=== PATIENT | female | born 1985 | race African-American/Black ===

== ENCOUNTER 2017-09-08 03:18 | Inpatient (IN) | payer BC ==
[2017-09-08] MEDS: Lactated Ringers 1,000 ML IV SCH ×4 (06:03→15:43)
[2017-09-08] MEDS ORDERED: Sodium Chloride 0.9% 10 ML Syringe FLUSH PRN (08:34)
[2017-09-08] MEDS ORDERED: Sodium Chloride 0.9% 2.5 ML Syringe FLUSH PRN (08:34)
[2017-09-08] MEDS ORDERED: Lactated Ringers 1,000 ML IV SCH ×2 (08:45→17:30)
[2017-09-08] MEDS ORDERED: Oxytocin/0.9 % Sodium Chloride 30 UNIT/500 ML BAG IV SCH (08:45)
[2017-09-08] MEDS ORDERED: Citric Acid/Sodium Citrate Solution 30 ML Cup PO SCH (08:45)
--- NOTE | 2017-09-08 11:10 | PCM.PREANE ---
Preanesthetic Assessment - Procedure Proposed Procedure: , repeat; kuldip - Anesthesia/Transfusion/Family Hx Anesthesia History: Unknown Family History of Anesthesia Reaction: No Intubation History: Unknown - Review of Systems General: Other (mild contractions) Pulmonary: No Symptoms Cardiovascular: No Symptoms Gastrointestinal: Other (some GERD) Neurological: No Symptoms Other: Reports: None - Physical Assessment NPO Status Date: 09/07/17 NPO Status Time: 23:00 Height: 5 ft 1 in Weight: 156 lb ASA Class: 2E Mental Status: Alert & Oriented x3 Airway Class: Mallampati = 1 Dentition: Reports: Normal Dentition Thyro-Mental Finger Breadths: 3 Mouth Opening Finger Breadths: 3 ROM/Head Extension: Full Lungs: Clear to Auscultation, Normal Respiratory Effort Cardiovascular: Regular Rate, Regular Rhythm, No Murmurs - Lab Values: Laboratory Last Values WBC 5.45 K/uL (4.0-11.0) 09/08/17 08:52 RBC 3.93 M/uL (4.30-5.90) L 09/08/17 08:52 Hgb 11.9 g/dL (12.0-16.0) L 09/08/17 08:52 Hct 35.5 % (36.0-46.0) L 09/08/17 08:52 MCV 90.3 fL (80.0-98.0) 09/08/17 08:52 MCH 30.3 pg (27.0-32.0) 09/08/17 08:52 MCHC 33.5 g/dL (31.0-37.0) 09/08/17 08:52 RDW Std Deviation 45.2 fl (28.0-62.0) 09/08/17 08:52 RDW Coeff of Tony 14 % (11.0-15.0) 09/08/17 08:52 Plt Count 166 K/uL (150-400) 09/08/17 08:52 MPV 11.00 fL (7.40-12.00) 09/08/17 08:52 Nucleated RBC % 0.0 /100WBC 09/08/17 08:52 Nucleated RBCs # 0 K/uL 09/08/17 08:52 Blood Type A POSITIVE 09/08/17 08:52 Antibody Screen NEGATIVE 09/08/17 08:52 - Allergies Allergies/Adverse Reactions: Allergies Allergy/AdvReac Type Severity Reaction Status Date / Time No Known Allergies Allergy Verified 05/05/14 13:15 - Blood Blood Available: No Product(s) Available: PRBC (T and S) - Anesthesia Plan Pre-Op Medication Ordered: Antacids - Acknowledgements Anesthesia Type Planned: Spinal Pt an Appropriate Candidate for the Planned Anesthesia: Yes Alternatives and Risks of Anesthesia Discussed w Pt/Guardian: Yes Pt/Guardian Understands and Agrees with Anesthesia Plan: Yes PreAnesthesia Questionnaire - Past Health History Medical/Surgical History: Denies Medical/Surgical History - CURRENT (IN HOUSE) MEDS Current Meds: Current Medications Citric Acid/Sodium Citrate (Bicitra Solution) 30 ml PO .ONCE RAIZA Lactated Ringer's (Ringers, Lactated) 1,000 mls @ 999 mls/hr IV ASDIRECTED [facility] Last Admin: 09/08/17 07:55 Dose: 999 mls/hr Lactated Ringer's (Ringers, Lactated) 1,000 mls @ 250 mls/hr IV ASDIRECTED [facility] Oxytocin/Sodium Chloride (Oxytocin 30 Unit/500 Ml-Ns) 30 unit in 500 mls @ 250 mls/hr IV TITRATE RAIZA Lactated Ringer's (Ringers, Lactated) 1,000 mls @ 500 mls/hr IV .BOLUS [facility] Sodium Chloride (Saline Flush) 10 ml FLUSH ASDIRECTED PRN PRN Reason: Keep Vein Open Sodium Chloride (Saline Flush) 2.5 ml FLUSH ASDIRECTED PRN PRN Reason: Keep Vein Open
[2017-09-08] MEDS ORDERED: ceFAZolin 2 GM in Premix Bag 1 BAG IV ONE (11:14)
--- NOTE | 2017-09-08 12:08 | PCM.LDHP ---
L&D History of Present Illness - General Date of Service: 09/08/17 Admit Problem/Dx: Patient Status Order with Admit Dx/Problem 09/08/17 04:00 Patient Status [ADT] Routine 09/08/17 08:37 Patient Status [ADT] Routine Admission Diagnosis/Problem Admission Diagnosis/Problem Source of Information: Patient History Limitations: Reports: No Limitations - History of Present Illness Improves with: Reports: None Worsens with: Reports: None Associated Symptoms: Reports: N - Related Data Allergies/Adverse Reactions: Allergies Allergy/AdvReac Type Severity Reaction Status Date / Time No Known Allergies Allergy Verified 05/05/14 13:15 Past Medical History - Past Health History Medical/Surgical History: Denies Medical/Surgical History H&P Review of Systems - Review of Systems: Review Of Systems: See Below General: Reports: No Symptoms HEENT: Reports: No Symptoms Pulmonary: Reports: No Symptoms Cardiovascular: Reports: No Symptoms Gastrointestinal: Reports: No Symptoms Genitourinary: Reports: No Symptoms Musculoskeletal: Reports: No Symptoms Skin: Reports: No Symptoms Psychiatric: Reports: No Symptoms Neurological: Reports: No Symptoms Hematologic/Lymphatic: Reports: No Symptoms Immunologic: Reports: No Symptoms L&D Exam - Exam Exam: See Below - Vital Signs Weight: 70.76 kg - OB Specific Fundal Height In cm: 37 Contraction Intensity: Moderate Movement: Active Heart Tones: Present Presentation: Vertex - Comer Score Comer Score Cervix Position: Posterior Comer Score Consistency: Firm Comer Score Effacement: 31-50% Comer Score Dilation: 1-2 cm Comer Score Infant's Station: -2 Comer Score Total: 3 - Exam General: Alert, Oriented HEENT: PERRLA, Conjunctiva Clear, EACs Clear, EOMI, Hearing Intact, Mucosa Moist & Gaffney, Nares Patent, Normal Nasal Septum, Posterior Pharynx Clear, TMs Clear Neck: Supple, Trachea Midline Lungs: Clear to Auscultation, Normal Respiratory Effort Cardiovascular: Regular Rate, Regular Rhythm GI/Abdominal Exam: Normal Bowel Sounds, Soft, Non-Tender, No Organomegaly, No Distention, No Abnormal Bruit, No Mass, Pelvis Stable Rectal Exam: Normal Exam, Normal Rectal Tone Genitourinary: Normal external exam, Normal bimanual exam, Normal speculum exam Back Exam: Normal Inspection, Full Range of Motion Extremities: Normal Inspection, Normal Range of Motion, Non-Tender, No Pedal Edema, Normal Capillary Refill Skin: Warm, Dry, Intact Neurological: Cranial Nerves Intact, Reflexes Equal Bilateral Psychiatric: Alert, Normal Affect, Normal Mood - Patient Data Lab Results Last 24 hrs: Laboratory Results - last 24 hr 09/08/17 09/08/17 Range/Units 08:52 08:52 WBC 5.45 (4.0-11.0) K/uL RBC 3.93 L (4.30-5.90) M/uL Hgb 11.9 L (12.0-16.0) g/dL Hct 35.5 L (36.0-46.0) % MCV 90.3 (80.0-98.0) fL MCH 30.3 (27.0-32.0) pg MCHC 33.5 (31.0-37.0) g/dL RDW Std Deviation 45.2 (28.0-62.0) fl RDW Coeff of Tony 14 (11.0-15.0) % Plt Count 166 (150-400) K/uL MPV 11.00 (7.40-12.00) fL Nucleated RBC % 0.0 /100WBC Nucleated RBCs # 0 K/uL Blood Type A POSITIVE Antibody Screen NEGATIVE Result Diagrams: 09/08/17 08:52 Problem List Initiated/Reviewed/Updated: Yes Orders Last 24hrs: Active Orders 24 hr Category Date Time Status Patient Status [ADT] Routine ADT 09/08/17 08:37 Active Non Stress Test [RC] PER UNIT ROUTINE Care 09/08/17 04:00 Active Notify Provider Vital Signs [RC] PRN Care 09/08/17 08:38 Active Procedure Site Prep Instruct [RC] ASDIRECTED Care 09/08/17 08:37 Active Up ad Maggi [RC] ASDIRECTED Care 09/08/17 04:00 Active Vaginal Exam [RC] Click to Edit Care 09/08/17 04:00 Active Verify Patient Consent Obtain [RC] ASDIRECTED Care 09/08/17 08:37 Active Vital Signs [RC] PER UNIT ROUTINE Care 09/08/17 04:00 Active Citric Acid/Sodium Citrate [Bicitra Solution] Med 09/08/17 08:45 Active 30 ml PO .ONCE Lactated Ringers [Ringers, Lactated] 1,000 ml Med 09/08/17 08:45 Active IV .BOLUS Lactated Ringers [Ringers, Lactated] 1,000 ml Med 09/08/17 05:45 Active IV ASDIRECTED Lactated Ringers [Ringers, Lactated] 1,000 ml Med 09/08/17 08:15 Active IV ASDIRECTED Oxytocin/0.9 % Sodium Chloride [Oxytocin 30 Unit/500 ML Med 09/08/17 08:45 Active -NS] 30 unit in 500 ml IV TITRATE Sodium Chloride 0.9% [Saline Flush] Med 09/08/17 08:34 Active 10 ml FLUSH ASDIRECTED PRN Sodium Chloride 0.9% [Saline Flush] Med 09/08/17 08:34 Active 2.5 ml FLUSH ASDIRECTED PRN Peripheral IV Insertion Adult [OM.PC] Routine Oth 09/08/17 08:37 Ordered Schedule Procedure [COMM] Per Unit Routine Oth 09/08/17 08:37 Ordered Resuscitation Status Routine Resus Stat 09/08/17 04:00 Ordered Medication Orders Citric Acid/Sodium Citrate (Bicitra Solution) 30 ml PO .ONCE RAIZA Lactated Ringer's (Ringers, Lactated) 1,000 mls @ 999 mls/hr IV ASDIRECTED [facility] Last Admin: 09/08/17 07:55 Dose: 999 mls/hr Infusion: 09/08/17 07:04 Dose: 999 mls/hr Admin: 09/08/17 06:03 Dose: 999 mls/hr Lactated Ringer's (Ringers, Lactated) 1,000 mls @ 250 mls/hr IV ASDIRECTED [facility] Oxytocin/Sodium Chloride (Oxytocin 30 Unit/500 Ml-Ns) 30 unit in 500 mls @ 250 mls/hr IV TITRATE RAIZA Lactated Ringer's (Ringers, Lactated) 1,000 mls @ 500 mls/hr IV .BOLUS [facility] Sodium Chloride (Saline Flush) 10 ml FLUSH ASDIRECTED PRN PRN Reason: Keep Vein Open Sodium Chloride (Saline Flush) 2.5 ml FLUSH ASDIRECTED PRN PRN Reason: Keep Vein Open Assessment/Plan Comment:: For years old patient she is para 300 3 mL 39 weeks plus she status post section 2 she is scheduled for elective repeat section next week she was approved by the [facility] for tubal ligation the patient today presented in labor and delivery with active contraction every 3-5 minutes she is have previous 2 section in early labor we will admit her to the hospital and will repeat her section today.
[2017-09-08] MEDS ORDERED: Octyl 2-Cyanoacrylate 1 Tube ONE (15:01)
[2017-09-08] MEDS ORDERED: fentaNYL 100 MCG/2 ML SDV ONE (15:41)
[2017-09-08] MEDS ORDERED: Morphine PF 1 MG/ML Amp ONE (15:41)
[2017-09-08] MEDS ORDERED: Oxytocin 10 Units/1 ML SDV ONE (15:43)
[2017-09-08] MEDS ORDERED: ePHEDrine 50 MG/ML SDV ONE (15:43)
[2017-09-08] MEDS ORDERED: ceFAZolin 1 GM Vial ONE ×2 (15:43→16:46)
[2017-09-08] MEDS ORDERED: Sodium Chloride 0.9% 20 ML ONE (15:43)
[2017-09-08] MEDS ORDERED: Phenylephrine/Normal Saline 100 MCG/ML 10 ML Syringe ONE (16:46)
[2017-09-08] MEDS ORDERED: Ondansetron 4 MG/2 ML SDV ONE (17:00)
[2017-09-08] MEDS ORDERED: diphenhydrAMINE 50 MG/ML SDV ONE (17:00)
[2017-09-08] MEDS ORDERED: Nalbuphine 10 MG/1 ML Vial IVPUSH PRN (17:06)
[2017-09-08] MEDS ORDERED: Acetaminophen/HYDROcodone 325-5 MG Tab PO PRN (17:06)
[2017-09-08] MEDS ORDERED: diphenhydrAMINE 50 MG/ML SDV IVPUSH PRN (17:19)
[2017-09-08] MEDS ORDERED: Ondansetron 4 MG/2 ML SDV IV PRN (17:19)
[2017-09-08] MEDS ORDERED: Lanolin 100% Cream 7 GM Tube TOP PRN (17:19)
[2017-09-08] MEDS ORDERED: Ibuprofen 800 MG Tab PO PRN (17:19)
[2017-09-08] MEDS ORDERED: Acetaminophen/oxyCODONE 325-5 MG Tab PO PRN ×2 (17:19)
[2017-09-08] MEDS ORDERED: Bisacodyl 10 MG Supp RECTAL PRN (17:19)
--- NOTE | 2017-09-08 17:23 | PCM.OPNOTE ---
- General Post-Op/Procedure Note Date of Surgery/Procedure: 09/08/17 Operative Procedure(s): Tepeat C/Section Bilateral salpengectomy Pre Op Diagnosis: IUP 39 wks Repeat C/section X2 donald permenat sterlization Post-Op Diagnosis: Same Anesthesia Technique: Spinal Primary Surgeon: Tej Encinas Attorney General: Lakshmi Dhaliwal EBL in mLs: 600 Complications: None Condition: Good
[2017-09-08] MEDS: Ketorolac 30 MG/ML SDV IVPUSH SCH ×2 (18:02→23:26)
--- NOTE | 2017-09-08 19:06 | PCM.POSTAN ---
POST ANESTHESIA ASSESSMENT - MENTAL STATUS Mental Status: Alert, Oriented - VITAL SIGNS Pulse Rate: 69 (irregular, sinus pauses) SaO2: 96 Resp Rate: 21 Blood Pressure: 114/77 - RESPIRATORY Respiratory Status: Respiratory Rate WNL, Airway Patent, O2 Saturation Stable - CARDIOVASCULAR CV Status: Pulse Rate WNL, Blood Pressure Stable - GASTROINTESTINAL GI Status: No Symptoms - PAIN Pain Score: 0 - POST OP HYDRATION Hydration Status: Adequate & Stable
[2017-09-08] MEDS: Docusate Sodium 100 MG Cap PO SCH (20:41)
--- NOTE | 2017-09-09 00:22 | OR ---
SURGEON: Tej Encinas MD DATE OF PROCEDURE: 09/08/2017 PREOPERATIVE DIAGNOSES: Intrauterine at 39 plus weeks, previous sections x2, in active labor, and desires permanent sterilization. POSTOPERATIVE DIAGNOSES: Intrauterine at 39 plus weeks, previous sections x2, in active labor, and desires permanent sterilization. OPERATION PERFORMED: Repeat low transverse section with bilateral salpingectomy. COMPUTER SYSTEMS AUDITOR: Lakshmi Dhaliwal CNM. ANESTHESIA: General. ANESTHESIA: Spinal. ESTIMATED BLOOD LOSS: 650 mL. COMPLICATIONS: None. FINDINGS: Normal uterus, tubes, and ovary and male fetus. score reported to be 8 and 9. PUTTY GLAZER: Shaylee Bailey MD. INDICATION FOR SURGERY: This patient is 32-year-old. She is para 3-0-0-3. She had 2 previous sections before. She is scheduled for elective repeat section next . However, she presented to the Labor and Delivery with an active labor with regular contraction. We went ahead and did her section today. The patient does desire permanent sterilization. She was previously approved by the ethic committee for tubal ligation. PROCEDURE IN DETAIL: The patient was brought to the OR, properly identified, and after adequate level of spinal anesthesia, the patient was prepped and draped in sterile fashion as usual, and with a Martinez catheter in the bladder, low transverse Pfannenstiel skin incision through the old scar was done. The Eddie fascia and rectus fascia were opened in direction of the incision. The 2 recti muscles were , and peritoneal cavity was entered. Bladder flap was raised in the usual manner pushing the bladder away from the lower uterine segment and then low transverse uterine incision extended manually, and fetus was in the vertex position, delivered, cried immediately, handed to Dr. Bailey who was present at the time of delivery for resuscitation. score later on reported to be 8 and 9. The weight is not available. The placenta delivered spontaneous, complete, and intact and then repair of the lower uterine segment is done with 2- 0 Vicryl continuous interlocking in 2 layers. Reperitonealization done with 3-0 Vicryl continuous. Now, attention was paid to the tubes, the fallopian tube on both sides and using Harmonic scapula, total salpingectomy was performed on both sides, thus achieving bilateral tubal ligation. Once that was done, then the peritoneal cavity evacuated completely from all blood and blood clot and closed with 3-0 Vicryl continuous. The rectus fascia was closed with #1 PDS continuous and Eddie fascia with 3-0 Vicryl continuous. The skin closed in a subcuticular fashion with 3-0 Vicryl on a Dennis needle. Instrument and sponge counts were correct. The patient tolerated the procedure well, went to recovery room in stable general condition. WM / GAGE /[id number]
[2017-09-09] MEDS: Ketorolac 30 MG/ML SDV IVPUSH SCH ×3 (05:22→17:41)
[2017-09-09] MEDS: Docusate Sodium 100 MG Cap PO SCH ×2 (09:12→20:47)
--- NOTE | 2017-09-09 09:13 | PCM.PNPP ---
- General Info Date of Service: 09/09/17 Admission Dx/Problem (Free Text): Patient Status Order with Admit Dx/Problem 09/08/17 04:00 Patient Status [ADT] Routine 09/08/17 08:37 Patient Status [ADT] Routine Admission Diagnosis/Problem Admission Diagnosis/Problem Functional Status: Reports: Pain Controlled, Tolerating Diet, Ambulating, Other (corbin to bsg) - Review of Systems General: Reports: No Symptoms HEENT: Reports: No Symptoms Pulmonary: Reports: No Symptoms Cardiovascular: Reports: No Symptoms Gastrointestinal: Reports: No Symptoms Genitourinary: Reports: No Symptoms Musculoskeletal: Reports: No Symptoms Skin: Reports: No Symptoms Neurological: Reports: No Symptoms Psychiatric: Reports: No Symptoms - Patient Data Vital Signs - Most Recent: Last Vital Signs Temp 36.6 C 09/09/17 07:00 Pulse 69 09/09/17 07:00 Resp 16 09/09/17 07:00 BP 112/65 09/09/17 07:00 Pulse Ox 97 09/09/17 07:00 Weight - Most Recent: 70.76 kg I&O - Last 24 Hours: Intake & Output 09/08/17 09/09/17 09/09/17 22:59 06:59 14:59 Intake Total 1400 4089 Output Total 170 1850 Balance 1230 2239 Lab Results - Last 24 Hours: Laboratory Results - last 24 hr 09/08/17 09/09/17 Range/Units 08:52 06:28 Hgb 11.1 L (12.0-16.0) g/dL Hct 33.3 L (36.0-46.0) % Blood Type A POSITIVE Antibody Screen NEGATIVE Med Orders - Current: Current Medications Hydrocodone Bitart/Acetaminophen (Lawrence 325-5 Mg) 1 tab PO Q4H PRN PRN Reason: Pain (moderate 4-6) Bisacodyl (Dulcolax) 10 mg RECTAL .ONCE PRN PRN Reason: Constipation Citric Acid/Sodium Citrate (Bicitra Solution) 30 ml PO .ONCE RAIZA Diphenhydramine HCl (Benadryl) 25 mg IVPUSH Q6H PRN PRN Reason: Itching or Nausea Docusate Sodium (Colace) 100 mg PO BID RAIZA Last Admin: 09/08/17 20:41 Dose: 100 mg Emollient Ointment (Lansinoh Hpa) 0 gm TOP ASDIRECTED PRN PRN Reason: Sore Nipples Lactated Ringer's (Ringers, Lactated) 1,000 mls @ 999 mls/hr IV ASDIRECTED [facility] Last Admin: 09/08/17 07:55 Dose: 999 mls/hr Lactated Ringer's (Ringers, Lactated) 1,000 mls @ 250 mls/hr IV ASDIRECTED [facility] Last Admin: 09/08/17 15:43 Dose: 250 mls/hr Oxytocin/Sodium Chloride (Oxytocin 30 Unit/500 Ml-Ns) 30 unit in 500 mls @ 250 mls/hr IV TITRATE [facility] Lactated Ringer's (Ringers, Lactated) 1,000 mls @ 500 mls/hr IV .BOLUS [facility] Lactated Ringer's (Ringers, Lactated) 1,000 mls @ 125 mls/hr IV ASDIRECTED [facility] Last Admin: 09/08/17 19:52 Dose: 125 mls/hr Ibuprofen (Motrin) 800 mg PO Q8H PRN PRN Reason: mild pain or fever Ketorolac Tromethamine (Toradol) 30 mg IVPUSH Q6H [facility] Stop: 09/09/17 17:31 Last Admin: 09/09/17 05:22 Dose: 30 mg Nalbuphine HCl (Nubain) 5 mg IVPUSH Q3H PRN PRN Reason: Pruritis Stop: 09/09/17 17:09 Ondansetron HCl (Zofran) 4 mg IV Q4H PRN PRN Reason: Nausea/Vomiting Oxycodone/Acetaminophen (Percocet 325-5 Mg) 1 tab PO Q4H PRN PRN Reason: Pain (moderate 4-6) Oxycodone/Acetaminophen (Percocet 325-5 Mg) 2 tab PO Q4H PRN PRN Reason: Pain (moderate 4-6) Sodium Chloride (Saline Flush) 10 ml FLUSH ASDIRECTED PRN PRN Reason: Keep Vein Open Sodium Chloride (Saline Flush) 2.5 ml FLUSH ASDIRECTED PRN PRN Reason: Keep Vein Open Discontinued Medications Cefazolin Sodium (Ancef) Confirm Administered Dose 1 gm .ROUTE .STK-MED ONE Stop: 09/08/17 15:44 Cefazolin Sodium (Ancef) Confirm Administered Dose 1 gm .ROUTE .STK-MED ONE Stop: 09/08/17 16:47 Diphenhydramine HCl (Benadryl) Confirm Administered Dose 50 mg .ROUTE .STK-MED ONE Stop: 09/08/17 17:01 Ephedrine Sulfate (Ephedrine Sulfate) Confirm Administered Dose 50 mg .ROUTE .STK-MED ONE Stop: 09/08/17 15:44 Fentanyl (Sublimaze) Confirm Administered Dose 100 mcg .ROUTE .STK-MED ONE Stop: 09/08/17 15:42 Cefazolin Sodium/Dextrose 2 gm (/ Premix) 50 mls @ 100 mls/hr IV ONETIME ONE Stop: 09/08/17 11:43 Last Admin: 09/08/17 19:51 Dose: Not Given Sodium Chloride (Normal Saline) Confirm Administered Dose 20 mls @ as directed .ROUTE .STK-MED ONE Stop: 09/08/17 15:44 Morphine Sulfate (Duramorph Pf) Confirm Administered Dose 1 mg .ROUTE .STK-MED ONE Stop: 09/08/17 15:42 Octyl Cyanoacrylate (Dermabond Advance) Confirm Administered Dose 1 applic .ROUTE .STK-MED ONE Stop: 09/08/17 15:02 Ondansetron HCl (Zofran) Confirm Administered Dose 4 mg .ROUTE .STK-MED ONE Stop: 09/08/17 17:01 Oxytocin (Pitocin) Confirm Administered Dose 20 unit .ROUTE .STK-MED ONE Stop: 09/08/17 15:44 Phenylephrine HCl (Phenylephrine In Ns 100 Mcg/Ml) Confirm Administered Dose 1 mg .ROUTE .STK-MED ONE Stop: 09/08/17 16:47 - Infant Interaction Infant Disposition, : [place] to Nursery Interaction: Holding Infant Infant Feeding: Breastfed ; Nursed Well Support Person: - Recovery Exam Fundal Tone: Firm Fundal Level: 1 Fingerbreadths Below Umbilicus Fundal Placement: Midline Lochia Amount: Small, Clots/Tissue Present Lochia Color: Rubra/Red Perineum Description: Other (see below) Episiotomy/Laceration: None Bladder Status: Indwelling Catheter in Place Urinary Elimination: Indwelling Catheter - Exam General: Alert, Oriented, Cooperative, No Acute Distress Lungs: Clear to Auscultation, Normal Respiratory Effort Cardiovascular: Regular Rate, Regular Rhythm, No Murmurs GI/Abdominal Exam: Normal Bowel Sounds, Soft, Tender Extremities: Normal Range of Motion, Non-Tender, No Pedal Edema, Normal Capillary Refill Skin: Warm, Dry, Intact Wound/Incisions: Healing Well, Dressing Dry and Intact Neurological: No New Focal Deficit, Normal Speech, Normal Tone Psy/Mental Status: Alert, Normal Affect, Normal Mood - Problem List & Annotations (1) Supervision of normal IUP (intrauterine ) in multigravida SNOMED Code(s): 311230911, 553717922, 435107992 Code(s): Z34.80 - ENCOUNTER FOR SUPRVSN OF NORMAL , UNSP TRIMESTER Status: Acute Priority: High Current Visit: Yes Qualifiers: Trimester: third trimester Qualified Code(s): Z34.83 - Encounter for supervision of other normal , third trimester (2) delivery delivered SNOMED Code(s): 090472591 Code(s): O82 - ENCOUNTER FOR DELIVERY WITHOUT INDICATION Status: Acute Priority: High Current Visit: Yes (3) Tubal ligation status SNOMED Code(s): 37387786135093, 219170379, 53140875117824 Code(s): Z98.51 - TUBAL LIGATION STATUS Status: Acute Priority: High Current Visit: Yes - Problem List Review Problem List Initiated/Reviewed/Updated: Yes - My Orders Last 24 Hours: My Active Orders 09/08/17 08:15 Lactated Ringers [Ringers, Lactated] 1,000 ml IV ASDIRECTED - Plan Plan:: For years old patient she is para 300 3 mL 39 weeks plus she status post section 2 she is scheduled for elective repeat section next week she was approved by the community for tubal ligation the patient today presented in labor and delivery with active contraction every 3-5 minutes she is have previous 2 section in early labor we will admit her to the hospital and will repeat her section today. PP day 1 A: RCS early due to contractions, Delivered healthy baby boy APGARS 9/9, WtL 6lb 3oz, EBL 600cc, BTL. Stable P: continue pp plan of care. Encouraged to walk more.
--- NOTE | 2017-09-09 10:25 | PCM48HPAN ---
Post Anesthesia Note - EVALUATION WITHIN 48HRS OF ANESTHETIC Vital Signs in Normal Range: Yes Patient Participated in Evaluation: Yes Respiratory Function Stable: Yes Airway Patent: Yes Cardiovascular Function Stable: Yes Hydration Status Stable: Yes Pain Control Satisfactory: Yes Nausea and Vomiting Control Satisfactory: Yes Mental Status Recovered: Yes Pulse Rate: 69 (irregular, sinus pauses) Resp Rate: 16 Blood Pressure: 114/77
--- NOTE | 2017-09-10 07:45 | PCM.DCSUM1 ---
Discharge Summary - Hospital Course Free Text/Narrative:: Discharge home with . Follow up in 10 days for incision check and 6 weeks for post . Come or call sooner if needed. - Discharge Data Discharge Date: 09/10/17 Discharge Disposition: Home, Self-Care 01 Condition: Good - Discharge Diagnosis/Problem(s) (1) Supervision of normal IUP (intrauterine ) in multigravida SNOMED Code(s): 054657508, [id number], [id number] ICD Code: Z34.80 - ENCOUNTER FOR SUPRVSN OF NORMAL , UNSP TRIMESTER Status: Acute Priority: High Current Visit: Yes Qualifiers: Trimester: third trimester Qualified Code(s): Z34.83 - Encounter for supervision of other normal , third trimester (2) delivery delivered SNOMED Code(s): 302042608 ICD Code: O82 - ENCOUNTER FOR DELIVERY WITHOUT INDICATION Status: Acute Priority: High Current Visit: Yes (3) Tubal ligation status SNOMED Code(s): 63919296218325, 352768639, 57545790881361 ICD Code: Z98.51 - TUBAL LIGATION STATUS Status: Acute Priority: High Current Visit: Yes - Patient Summary/Data Operative Procedure(s) Performed: Tepeat C/Section Bilateral salpengectomy - Patient Instructions Diet: Usual Diet as Tolerated Activity: As Tolerated, No Strenuous Activities, Rest and Relax Today Driving: May Drive Today Showering/Bathing: May Shower, No Tub Bathing/Swimming (for a least 1 weeks) Wound/Incision Care: Keep Operative Site/Wound Site Clean and Dry Notify Provider of: Fever, Increased Pain, Swelling and Redness, Drainage, Nausea and/or Vomiting Other/Special Instructions: Discharge home with . Follow up in 10 days for incision check and 6 weeks for post . Come or call sooner if needed. - Discharge Plan Home Medications: Home Meds Pnv No.95/Ferrous Fum/Folic AC [ Multivitamin Tablet] 1 tab PO DAILY [History] - General Info Date of Service: 09/10/17 Functional Status: Reports: Pain Controlled, Tolerating Diet, Ambulating - Review of Systems General: Reports: No Symptoms HEENT: Reports: No Symptoms Pulmonary: Reports: No Symptoms Cardiovascular: Reports: No Symptoms Gastrointestinal: Reports: No Symptoms Genitourinary: Reports: No Symptoms Musculoskeletal: Reports: No Symptoms Skin: Reports: No Symptoms Neurological: Reports: No Symptoms Psychiatric: Reports: No Symptoms - Patient Data Vitals - Most Recent: Last Vital Signs Temp 36.8 C 09/10/17 06:00 Pulse 82 09/10/17 06:00 Resp 16 09/10/17 06:00 BP 110/62 09/10/17 06:00 Pulse Ox 99 09/10/17 06:00 Weight - Most Recent: 70.76 kg Med Orders - Current: Current Medications Hydrocodone Bitart/Acetaminophen ([place] 325-5 Mg) 1 tab PO Q4H PRN PRN Reason: Pain (moderate 4-6) Bisacodyl (Dulcolax) 10 mg RECTAL .ONCE PRN PRN Reason: Constipation Citric Acid/Sodium Citrate (Bicitra Solution) 30 ml PO .ONCE RAIZA Diphenhydramine HCl (Benadryl) 25 mg IVPUSH Q6H PRN PRN Reason: Itching or Nausea Docusate Sodium (Colace) 100 mg PO BID [facility] Last Admin: 09/09/17 20:47 Dose: 100 mg Emollient Ointment (Lansinoh Hpa) 0 gm TOP ASDIRECTED PRN PRN Reason: Sore Nipples Lactated Ringer's (Ringers, Lactated) 1,000 mls @ 999 mls/hr IV ASDIRECTED [facility] Last Admin: 09/08/17 07:55 Dose: 999 mls/hr Lactated Ringer's (Ringers, Lactated) 1,000 mls @ 250 mls/hr IV ASDIRECTED [facility] Last Admin: 09/08/17 15:43 Dose: 250 mls/hr Oxytocin/Sodium Chloride (Oxytocin 30 Unit/500 Ml-Ns) 30 unit in 500 mls @ 250 mls/hr IV TITRATE [facility] Lactated Ringer's (Ringers, Lactated) 1,000 mls @ 500 mls/hr IV .BOLUS [facility] Lactated Ringer's (Ringers, Lactated) 1,000 mls @ 125 mls/hr IV ASDIRECTED [facility] Last Admin: 09/08/17 19:52 Dose: 125 mls/hr Ibuprofen (Motrin) 800 mg PO Q8H PRN PRN Reason: mild pain or fever Last Admin: 09/09/17 20:46 Dose: 800 mg Ondansetron HCl (Zofran) 4 mg IV Q4H PRN PRN Reason: Nausea/Vomiting Oxycodone/Acetaminophen (Percocet 325-5 Mg) 1 tab PO Q4H PRN PRN Reason: Pain (moderate 4-6) Oxycodone/Acetaminophen (Percocet 325-5 Mg) 2 tab PO Q4H PRN PRN Reason: Pain (moderate 4-6) Last Admin: 09/10/17 04:42 Dose: 2 tab Sodium Chloride (Saline Flush) 10 ml FLUSH ASDIRECTED PRN PRN Reason: Keep Vein Open Sodium Chloride (Saline Flush) 2.5 ml FLUSH ASDIRECTED PRN PRN Reason: Keep Vein Open Discontinued Medications Cefazolin Sodium (Ancef) Confirm Administered Dose 1 gm .ROUTE .STK-MED ONE Stop: 09/08/17 15:44 Cefazolin Sodium (Ancef) Confirm Administered Dose 1 gm .ROUTE .STK-MED ONE Stop: 09/08/17 16:47 Diphenhydramine HCl (Benadryl) Confirm Administered Dose 50 mg .ROUTE .STK-MED ONE Stop: 09/08/17 17:01 Ephedrine Sulfate (Ephedrine Sulfate) Confirm Administered Dose 50 mg .ROUTE .STK-MED ONE Stop: 09/08/17 15:44 Fentanyl (Sublimaze) Confirm Administered Dose 100 mcg .ROUTE .STK-MED ONE Stop: 09/08/17 15:42 Cefazolin Sodium/Dextrose 2 gm (/ Premix) 50 mls @ 100 mls/hr IV ONETIME ONE Stop: 09/08/17 11:43 Last Admin: 09/08/17 19:51 Dose: Not Given Sodium Chloride (Normal Saline) Confirm Administered Dose 20 mls @ as directed .ROUTE .STK-MED ONE Stop: 09/08/17 15:44 Ketorolac Tromethamine (Toradol) 30 mg IVPUSH Q6H RAIZA Stop: 09/09/17 17:31 Last Admin: 09/09/17 17:41 Dose: 30 mg Morphine Sulfate (Duramorph Pf) Confirm Administered Dose 1 mg .ROUTE .STK-MED ONE Stop: 09/08/17 15:42 Nalbuphine HCl (Nubain) 5 mg IVPUSH Q3H PRN PRN Reason: Pruritis Stop: 09/09/17 17:09 Octyl Cyanoacrylate (Dermabond Advance) Confirm Administered Dose 1 applic .ROUTE .STK-MED ONE Stop: 09/08/17 15:02 Ondansetron HCl (Zofran) Confirm Administered Dose 4 mg .ROUTE .STK-MED ONE Stop: 09/08/17 17:01 Oxytocin (Pitocin) Confirm Administered Dose 20 unit .ROUTE .STK-MED ONE Stop: 09/08/17 15:44 Phenylephrine HCl (Phenylephrine In Ns 100 Mcg/Ml) Confirm Administered Dose 1 mg .ROUTE .STK-MED ONE Stop: 09/08/17 16:47 - Exam General: Reports: Alert, Oriented, Cooperative, No Acute Distress Lungs: Reports: Clear to Auscultation, Normal Respiratory Effort Cardiovascular: Reports: Regular Rate, Regular Rhythm, No Murmurs GI/Abdominal Exam: Soft, No Organomegaly, No Distention, No Abnormal Bruit, No Mass, Pelvis Stable (Female) Exam: Vaginal Bleeding Rectal (Female) Exam: Deferred Back Exam: Reports: Normal Inspection, Full Range of Motion Extremities: Normal Inspection, Normal Range of Motion, Non-Tender, No Pedal Edema, Normal Capillary Refill Skin: Reports: Warm, Dry, Intact Wound/Incisions: Reports: Healing Well, No Drainage Neurological: Reports: No New Focal Deficit, Normal Speech, Normal Tone Psy/Mental Status: Reports: Alert, Normal Affect, Normal Mood
[2017-09-10 08:04] VITALS: BP 129/64
[2017-09-10] MEDS: Docusate Sodium 100 MG Cap PO SCH (09:11)
== END 2017-09-10 12:45 | disposition home or self-care (01) | DRG 540 ==
LOC: MW.OBCHECK 03:18 → MW.OB 03:22 → MW.OBCHECK 08:37 → OBSVTOIN 08:47 → INTOOBSV 08:47 → MW.OB 08:47 → UNDOADMOB 08:47 → MW.OB 17:37
PROVIDERS: ADMIT Obstetrics & Gynecology; ATTEND Obstetrics & Gynecology
PROC: 10D00Z1 Extraction of Products of Conception, Low, Open Approach (ICD-10-PCS; principal; 2017-09-08)
PROC: 0UT70ZZ Resection of Bilateral Fallopian Tubes, Open Approach (ICD-10-PCS; 2017-09-08)
DX: O34.211 Maternal care for low transverse scar from previous cesarean delivery (principal); Z3A.39 39 weeks gestation of pregnancy; Z37.0 Single live birth
CPT/HCPCS: 36415; 59025; 85014; 85018; 85027; 86850; 86900; 86901; A9270-GY; J0690; J1200; J1885; J2274; J2405; J2590; J3010; J7120